=== PATIENT | male | born 1965 | race Caucasian/White ===

== ENCOUNTER 2022-08-09 11:32 | Outpatient (CLI) | payer OTHER, SELFPAY ==
[2022-08-09 17:10] LABS: Chloride* 102 mmol/L (96-114); Potassium* 4.5 mmol/L (3.6-5.1); Sodium* 141 mmol/L (135-149)
[2022-08-09 17:13] LABS: Blood Urea Nitrogen* 22 mg/dL (7-30); Carbon Dioxide* 29 mmol/L (20-32); Cholesterol* 189 mg/dL (90-199); Estimated Glomerular Filt Rate 89 ml/min; Glucose* 95 mg/dL (60-115); Triglycerides* 361 mg/dL (40-149)
[2022-08-09 17:14] LABS: Calcium* 9.6 mg/dL (8.4-10.6); HDL Cholesterol* 37 mg/dL (>=40); LDL Cholesterol Calculated 80 mg/dL (<100)
[2022-08-09 17:46] LABS: PSA Screen* 0.54 ng/mL (0.10-4.00)
== END 2022-08-09 11:33 | disposition home or self-care (01) ==
PROVIDERS: PCP Family Medicine; Visit Provider Family Medicine
DX: Z00.00 Encounter for general adult medical examination without abnormal findings (principal); Z13.1 Encounter for screening for diabetes mellitus; Z12.5 Encounter for screening for malignant neoplasm of prostate; Z13.6 Encounter for screening for cardiovascular disorders
CPT/HCPCS: 80048; 80061; 84153

== ENCOUNTER 2023-01-09 21:36 | Emergency (ER) | payer OTHER, SELFPAY ==
[2023-01-09 21:47] VITALS: BP 172/81; PULSE 94; RESP 22; TEMP 36.1; O2SAT 91
--- NOTE | 2023-01-09 21:57 | CRLHL7_ITS ---
For Patients: As a result of the Century Cures Act, medical imaging exams and procedure reports are released immediately into your electronic medical record. You may view this report before your referring provider. If you have questions, please contact your health care provider. INDICATION: Cough. TECHNIQUE: Chest 1 view. COMPARISON: None. FINDINGS: The right costophrenic angle is excluded from the field of view. No focal consolidation, pleural effusion, or pneumothorax. Normal heart size and pulmonary vascularity. The bones are unremarkable. IMPRESSION: No acute cardiopulmonary findings. Dictated by Maite Jeffers MD @ 01/09/2023 10:27:58 PM (Electronically Signed)
--- NOTE | 2023-01-09 21:59 | ED_ITS ---
HPI - General Adult General Time Seen by Provider: 21:59 Date Seen: 01/09/23 Chief complaint: Shortness of Breath/Dyspnea Stated complaint: Short of Breath Congested Cough Time Seen by Provider: 01/09/23 21:38 Source: patient Mode of arrival: ambulatory Limitations: no limitations History of Present Illness HPI narrative: Patient is a 57 year white male who is hit with a history of asthma. He has had a cough for the last couple months it sounds like, he is on montelukast, and he has an albuterol inhaler. He has gotten better with steroids in the past. He tends to get a respiratory infection and asthma problem every winter. He has noticed this over the last week and it has gotten worse. He was on prednisone it sounds like about 3 weeks ago for a persistent cough he was not treated with antibiotics at that time. He reports a dry hacking cough he feels short of breath today was worse. His O2 sat on presentation is 91% he is audibly wheezing. He does not smoke Related Data Home Medications Medication Instructions Recorded Confirmed aspirin 81 mg capsule 81 mg PO QDAY 08/09/22 12/23/22 fexofenadine 180 mg tablet 180 mg PO .hs 12/23/22 12/23/22 (Ivanna Allergy) Previous Rx's Medication Instructions Recorded montelukast 10 mg tablet 10 mg PO QHS #30 tabs 08/09/22 prednisone 20 mg tablet 40 mg PO QDAY #10 tabs 12/23/22 azithromycin 500 mg tablet 500 mg PO DAILY 6 days #9 tabs 01/09/23 (Zithromax) prednisone 20 mg tablet 20 mg PO BID 5 days #10 tabs 01/09/23 Allergies Allergy/AdvReac Type Severity Reaction Status Date / Time No Known Drug Allergies Allergy Verified 08/09/22 10:58 Review of Systems Status of ROS: Reports: 6 or more systems reviewed and unremarkable except as noted in History and below PFSH PFS Surgical History S/P appendectomy ?Z90.49 - Acquired absence of other specified parts of digestive tract (ICD- 10) Social History Smoking Status: Never smoker Exam Narrative: Exam Narrative: Objective: Patient is alert orient x3, noncyanotic, O2 sats 91% on room air. He is alert orient x3 Talks in even unlabored sentences Neck is supple Chest inspiratory expiratory wheezes in all lung wright Heart rhythm regular no murmur Abdomen benign soft Extremities are no edema, good peripheral perfusion Skin periphery warm and dry Const: Vital Signs, click to edit/add: Vital Signs - 24 hr 01/09/23 21:47 01/09/23 23:24 01/09/23 23:24 Temperature 97.0 F L Pulse Rate [Left P ulse Oximeter] 94 97 97 Respiratory Rate 22 20 Blood Pressure [Ri t Upper Arm] 172/81 H Pulse Oximetry 91 93 Oxygen Delivery Me thod Room Air Course Vital Signs Vital signs: Initial Vital Signs Temperature 97.0 F L 01/09/23 21:47 Temperature Source Temporal Artery Scan 01/09/23 21:47 Pulse Rate 94 01/09/23 21:47 Pulse Rhythm Regular 01/09/23 21:47 Respiratory Rate 22 01/09/23 21:47 Blood Pressure 172/81 H 01/09/23 21:47 Blood Pressure Mean 111 01/09/23 21:47 Blood Pressure Position Semi-Fowlers 01/09/23 21:47 Pulse Oximetry 91 01/09/23 21:47 Oxygen Delivery Method Room Air 01/09/23 21:47 Vital Signs Temperature 97.0 F L 01/09/23 21:47 Pulse Rate 94 01/09/23 21:47 Respiratory Rate 22 01/09/23 21:47 Blood Pressure 172/81 H 01/09/23 21:47 Pulse Oximetry 91 01/09/23 21:47 Oxygen Delivery Method Room Air 01/09/23 21:47 Temperature 97.0 F L 01/09/23 21:47 Pulse Rate 97 01/09/23 23:24 Respiratory Rate 20 01/09/23 23:24 Blood Pressure 172/81 H 01/09/23 21:47 Pulse Oximetry 93 01/09/23 23:24 Oxygen Delivery Method Room Air 01/09/23 21:47 Medical Decision Making [facility] Narrative Medical decision making narrative: [age] year white male with history of asthma/reactive airway disease, with recurrent symptoms each winter. Patient has wheezing at this point in mild hypoxia. Will check for COVID/influenza/RSV, will check a chest x-ray, IV Solu- Medrol IV Zithromax DuoNeb. Disposition pending findings and clinical status. Addendum: The patient's chest x-ray looks unremarkable by my read, his nasal swab results are not back yet, he feels better after the DuoNeb. He has increased his O2 sat 94 95%. He is breathing much easier. I think would be medley to have him on Zithromax, steroids orally, he can continue the Ivanna and he was having some side effect with the Singulair causing some cognitive depressive symptoms and he should talk to his regular provider about that. He also may need a treatment plan for winter as he seems to get bothered by postnasal drainage and allergy and asthma flares. He will talk to his regular providers on Tuesday sooner to ER as needed. Lab Data Labs: Lab Results 01/09/23 Range/Units 22:22 WBC 17.57 H (4.50-11.00) K/uL RBC 5.16 (4.30-5.90) m/uL Hgb 15.0 (13.5-17.5) gm/dL Hct 44.9 (37.0-53.0) % MCV 87 (80-100) fL MCH 29 (26-34) pg MCHC 33 (32-36) gm/dL RDW Coeff of Sarah 12.3 (11.5-15.5) % Plt Count 254 (140-440) K/uL Neut % (Auto) 70.3 (42.0-72.0) % Lymph % (Auto) 16.5 L (20-44) % [place] % (Auto) 6.5 (0.0-11.0) % Eos % (Auto) 5.0 (0.0-7.0) % Baso % (Auto) 0.3 (0.0-3.0) % Neut # (Auto) 12.40 H (1.7-7.0) K/uL Lymph # (Auto) 2.90 (0.90-2.90) K/uL [place] # (Auto) 1.10 H (0.00-0.90) K/UL Eos # (Auto) 0.90 H (0.00-0.50) K/uL Baso # (Auto) 0.10 (0.00-0.30) K/uL Sodium 139 (135-149) mmol/L Potassium 4.1 (3.6-5.1) mmol/L Chloride 105 (96-114) mmol/L Carbon Dioxide 28 (20-32) mmol/L BUN 16 (7-30) mg/dL Creatinine 1.1 (0.5-1.5) mg/dL Estimated GFR 79 ml/min Glucose 99 (60-115) mg/dL Calcium 8.8 (8.4-10.6) mg/dL SARS-CoV-2 (PCR) Negative SARS-CoV-2 (Negative) Influenza Type A (PCR) Negative PCR FLU A (Negative) Influenza Type B (PCR) Negative PCR FLU B (Negative) RSV (PCR) Negative PCR RSV (Negative) Discharge Plan Discharge Clinical Impression: Reactive airway disease Patient Disposition: Home w/ Parent or Adult Condition: Improved Additional Instructions: Rest, fluids, continue inhalers, prednisone 20 mg b.i.d. x5 days, Zithromax 500 mg daily for 6 additional days, recheck with primary care in the next 48 hours, return to ED sooner problems concerns difficulty. Would recommend getting a home oximeter as well. Activity Level: Light activity Discharge Diet: Regular Prescriptions: New azithromycin [Zithromax] 500 mg tablet 500 mg PO DAILY 6 Days Qty: 9 0RF prednisone 20 mg tablet 20 mg PO BID 5 Days Qty: 10 0RF No Action fexofenadine [Ivanna Allergy] 180 mg tablet 180 mg PO .hs prednisone 20 mg tablet 40 mg PO QDAY Qty: 10 0RF aspirin 81 mg capsule 81 mg PO QDAY montelukast 10 mg tablet 10 mg PO QHS Qty: 30 11RF Follow Up/Referrals: Ramirez Hernandez MD [Primary Care Provider] - Stand Alone Forms: [employer] Info Instructions
[2023-01-09] MEDS: IPRAT-ALBUT 0.5-2.5 MG/3 ML NEB 1 NEB IH (22:24)
[2023-01-09] MEDS: 0.9 % SODIUM CHLORIDE 1000 ml 1,000 ML 6000 ML IV (22:24)
[2023-01-09] MEDS: METHYLPREDNISOLONE SOD SUCC 62.5 MG/ML (125) 125 MG IVP (22:25)
[2023-01-09] MEDS: AZITHROMYCIN 100 MG/ML inj 500 MG IVPB (22:25)
[2023-01-09 22:52] LABS: Basophils Percent Auto 0.3 % (0.0-3.0); Hematocrit 44.9 % (37.0-53.0); Immature Granulocytes Pct Auto 1.4 %; Lymphocytes Percent Auto 16.5 % (20-44); Mean Corpuscular HGB Conc 33 gm/dL (32-36); Mean Corpuscular Hemoglobin 29 pg (26-34); Mean Corpuscular Volume 87 fL (80-100); Monocytes Percent Auto 6.5 % (0.0-11.0); Neutrophils Percent Auto 70.3 % (42.0-72.0); Platelet Count* 254 K/uL (140-440); RDW Coefficient of Variation % 12.3 % (11.5-15.5); Red Blood Count 5.16 m/uL (4.30-5.90); White Blood Count* 17.57 K/uL (4.50-11.00)
[2023-01-09 22:54] LABS: Chloride* 105 mmol/L (96-114); Potassium* 4.1 mmol/L (3.6-5.1); Sodium* 139 mmol/L (135-149)
[2023-01-09 22:56] LABS: Creatinine* 1.1 mg/dL (0.5-1.5); Estimated Glomerular Filt Rate 79 ml/min
[2023-01-09 22:57] LABS: Blood Urea Nitrogen* 16 mg/dL (7-30); Calcium* 8.8 mg/dL (8.4-10.6); Carbon Dioxide* 28 mmol/L (20-32); Glucose* 99 mg/dL (60-115); Slide Review Reflex No
[2023-01-09 23:18] LABS: PCR FLU A Negative PCR FLU A (Negative); PCR FLU B Negative PCR FLU B (Negative); PCR RSV Negative PCR RSV (Negative)
[2023-01-09 23:24] VITALS: PULSE 97; RESP 20; O2SAT 93
[2023-01-09 23:28] LABS: SARS PCR* Negative SARS-CoV-2 (Negative)
== END 2023-01-09 23:37 | disposition home or self-care (01) ==
LOC: ED 22:18
PROVIDERS: Emergency Provider Family Medicine; PCP Family Medicine
DX: J45.909 Unspecified asthma, uncomplicated (principal)
CPT/HCPCS: 36415; 71045; 80048; 85025; 87502; 87634; 87635; 94640; 94761; 96374; 96375; 99284; J0456; J2930; J7030

== ENCOUNTER 2024-02-27 10:29 | Emergency (ER) | payer OTHER, SELFPAY ==
[2024-02-27 10:32] VITALS: BP 137/74; PULSE 74; RESP 16; TEMP 36.8; O2SAT 95; BMI 30.1
--- NOTE | 2024-02-27 11:02 | ED.GENADULT ---
HPI - General Adult General Date Seen: 02/27/24 Chief complaint: Eye Problems Stated complaint: sore eyes Time Seen by Provider: 02/27/24 10:41 Source: patient Mode of arrival: ambulatory Limitations: no limitations History of Present Illness HPI narrative: Patient presents with irritation and ?soreness of both of his eyes. It started on the left eye on Tuesday and as of last night developed in the right eye. He has noted redness, irritation, and yellowish green discharge. He says his vision seems maybe mildly blurry but not dramatically affected. He does have seasonal allergies, takes daily Ivanna, but has not had problems like this with his allergies. Notes that his eyes are not significantly itchy. He is a [place], he is around a lot of dust in particulate debris but does not have any heart history of foreign body per se. He does not wear contact lenses. No welding. Related Data Home Medications Medication Instructions Recorded Confirmed aspirin 81 mg capsule 81 mg PO QDAY 08/09/22 02/27/24 fexofenadine 180 mg tablet 180 mg PO .hs 12/23/22 02/27/24 (Ivanna Allergy) Previous Rx's Medication Instructions Recorded albuterol sulfate 90 mcg/actuation 2 puff inhalation Q4-6H PRN 08/08/23 aerosol inhaler shortness of breath or wheezing #8.5 grams fluticasone 500 mcg-salmeterol 50 1 inh inhalation BID #60 ea 08/08/23 mcg/dose blistr powdr for inhalation (Wixela Inhub) montelukast 10 mg tablet 10 mg PO QHS #90 tabs 08/08/23 Allergies Allergy/AdvReac Type Severity Reaction Status Date / Time No Known Drug Allergies Allergy Verified 02/27/24 10:38 [facility] Surgical History S/P appendectomy ?Z90.49 - Acquired absence of other specified parts of digestive tract (ICD-10) Social History Smoking Status: Never smoker Exam Narrative: Exam Narrative: Vital signs reviewed In general, alert, well-appearing male. Eyes: He has conjunctival injection bilaterally, left greater than right. He has a little bit of injection of the lids as well, mild edema. Pupils are equal and reactive. No obvious foreign body. Purulent discharge is noted. Extraocular movements are full, no ophthalmoplegia. No significant erythema around the eyes. ENT: TMs are normal, nares clear, throat normal. Skin: Warm dry well perfused, no rash or lesion. Const: Vital Signs, click to edit/add: Vital Signs - 24 hr 02/27/24 10:32 Temperature 98.3 F Pulse Rate [Pulse Oximeter] 74 Respiratory Rate 16 Blood Pressure [Ri ght Upper Arm] 137/74 Pulse Oximetry 95 Oxygen Delivery Me thod Room Air Course Course ED Course: Overall exam is suggestive of bacterial conjunctivitis at this time with purulent discharge and progressive symptoms over the past couple of days. He does not give a history form body and I do not see anything on exam. Recommended antibiotic eyedrops, if not improving over the next day or 2 should be seen by the at Eye Clinic, return at any time for worsening symptoms such as significant vision changes, photophobia, severe pain. Vital Signs Vital signs: Initial Vital Signs Temperature 98.3 F 02/27/24 10:32 Temperature Source Temporal Artery Scan 02/27/24 10:32 Pulse Rate 74 02/27/24 10:32 Respiratory Rate 16 02/27/24 10:32 Blood Pressure 137/74 02/27/24 10:32 Blood Pressure Mean 95 02/27/24 10:32 Blood Pressure Position Sitting 02/27/24 10:32 Pulse Oximetry 95 02/27/24 10:32 Oxygen Delivery Method Room Air 02/27/24 10:32 Vital Signs Temperature 98.3 F 02/27/24 10:32 Pulse Rate 74 02/27/24 10:32 Respiratory Rate 16 02/27/24 10:32 Blood Pressure 137/74 02/27/24 10:32 Pulse Oximetry 95 02/27/24 10:32 Oxygen Delivery Method Room Air 02/27/24 10:32 Temperature 98.3 F 02/27/24 10:32 Pulse Rate 74 02/27/24 10:32 Respiratory Rate 16 02/27/24 10:32 Blood Pressure 137/74 02/27/24 10:32 Pulse Oximetry 95 02/27/24 10:32 Oxygen Delivery Method Room Air 02/27/24 10:32 Discharge Plan Discharge Clinical Impression: Bacterial conjunctivitis Patient Disposition: Home, Self-Care Condition: Stable Instructions: Conjunctivitis (ED) Additional Instructions: Antibiotic drops as prescribed. If you have worsening pain, changes in your vision, significant light sensitivity, etcetera, return at any time or be seen at an eye clinic. If no improvement over the next 24-48 hours, recheck with eye doctor. Prescriptions: No Action fexofenadine [Ivanna Allergy] 180 mg tablet 180 mg PO .hs aspirin 81 mg capsule 81 mg PO QDAY albuterol sulfate 90 mcg/actuation HFA aerosol inhaler 2 puff inhalation Q4-6H PRN (Reason: shortness of breath or wheezing) Qty: 8.5 8RF fluticasone propion-salmeterol [Wixela Inhub] 500-50 mcg/dose blister with device 1 inh inhalation BID Qty: 60 11RF montelukast 10 mg tablet 10 mg PO QHS Qty: 90 3RF Follow Up/Referrals: Ramirez Hernandez MD [Primary Care Provider] - Stand Alone Forms: [employer] Info Instructions
== END 2024-02-27 11:10 | disposition home or self-care (01) ==
PROVIDERS: Emergency Provider Emergency Medicine; PCP Family Medicine
DX: H10.33 Unspecified acute conjunctivitis, bilateral (principal)
CPT/HCPCS: 99283

== ENCOUNTER 2024-08-21 11:30 | Outpatient (CLI) | payer OTHER, SELFPAY | END 2024-08-21 11:31 | disposition home or self-care (01) | PROVIDERS: PCP Family Medicine; Visit Provider Family Medicine | DX: Z13.1 Encounter for screening for diabetes mellitus (principal); Z12.5 Encounter for screening for malignant neoplasm of prostate | CPT/HCPCS: 80048; G0103 ==

== ENCOUNTER 2024-09-29 11:08 | Emergency (ER) | payer OTHER, SELFPAY ==
[2024-09-29] VITALS (12 sets, daily range): BP systolic 147; BP diastolic 88; PULSE 75–93; RESP 20; TEMP 36.7; O2SAT 91–97
--- NOTE | 2024-09-29 11:35 | CRLHL7_ITS ---
For Patients: As a result of the Century Cures Act, medical imaging exams and procedure reports are released immediately into your electronic medical record. You may view this report before your referring provider. If you have questions, please contact your health care provider. INDICATION: Cough shortness of breath TECHNIQUE: Two view chest. FINDINGS: The lungs are clear. The heart, mediastinum and pulmonary vessels are of normal size. There is no evidence of pleural disease. IMPRESSION: Negative chest. Dictated by Pati Barry MD @ 09/29/2024 1:29:21 PM (Electronically Signed)
[2024-09-29] MEDS: ALBUTEROL SULFATE 2.5 MG/3 ML VIAL.NEB NEB (11:42)
--- NOTE | 2024-09-29 12:04 | ED.SOB ---
HPI - SOB/Dyspnea General Date Seen: 09/29/24 Chief Complaint: Shortness of Breath/Dyspnea Stated Complaint: shortness of breath,congestion Time Seen by Provider: 09/29/24 11:23 Source: patient Mode of arrival: ambulatory Limitations: no limitations History of Present Illness HPI Narrative: Patient is a 59-year-old male presenting to the emergency department for shortness of breath. States symptoms have been going on for the past 2 weeks. Describes shortness of breath is relatively mild and does feels he can not always take a full deep breath. Does also note some very mild substernal pressure that is been going on. States he gets symptoms like this every year for the past 4 years about this time. States this feels just like his previous episodes. Was told he has some formal seasonal asthma. Takes inhalers at home which she states has been helping somewhat but not been fully getting rid of the symptoms. Does not use a spacer for his albuterol inhaler. Denies fevers, chills, weakness, numbness. States he has a very mild left frontal headache. States it is tolerable. Denies any sinus pain. Has been having a cough and coughing up green mucus along with some green nasal drainage. No other concerns noted. Denies any history of smoking. No history of blood clots. No recent travel. Related Data Home Medications ?Medication ?Instructions ?Recorded ?Confirmed fexofenadine 180 mg tablet 180 mg PO .hs 12/23/22 09/29/24 (Ivanna Allergy) Previous Rx's ?Medication ?Instructions ?Recorded albuterol sulfate 90 mcg/actuation 2 puff inhalation Q4-6H PRN 08/21/24 aerosol inhaler shortness of breath or wheezing #8.5 grams fluticasone 500 mcg-salmeterol 50 1 inh inhalation BID #60 ea 08/21/24 mcg/dose blistr powdr for inhalation (Wixela Inhub) montelukast 10 mg tablet 10 mg PO QHS #90 tabs 08/21/24 azithromycin 250 mg tablet See Rx Instructions PO .COMPLEX #6 09/29/24 (Zithromax) tabs prednisone 20 mg tablet 40 mg (2 x 20 mg) PO DAILY #8 tabs 09/29/24 Allergies Allergy/AdvReac Type Severity Reaction Status Date / Time No Known Drug Allergies Allergy Verified 09/29/24 11:22 Review of Systems Status of ROS: Reports: 10 or more systems reviewed and unremarkable except as noted in History and below PFSH [facility] Surgical History S/P appendectomy ?Z90.49 - Acquired absence of other specified parts of digestive tract (ICD-10) Social History Smoking Status: Never smoker Do you use any of these nicotine containing products: None How often do you have a drink containing alcohol: never How often do you have six or more drinks on one occasion: Never AUDIT-C Alcohol total score: 0 Non-prescribed substance use: denies use service: No Exam Narrative: Exam Narrative: Const: Well-nourished, Well-developed, in mild distress Eyes: PERRL, no conjunctival injection, and symmetrical lids HENT: Atraumatic external nose and ears. Moist mucous membranes. Neck: Symmetric, trachea midline, No thyromegaly. CVS: RRR, No murmurs or gallops. Peripheral pulses 2+ and equal in all extremities RESP: Unlabored respiratory effort. Clear to auscultation bilaterally. GI: Nontender/Nondistended, No rebound or guarding. MSK:Extremities w/o deformity, Normal Active ROM Skin: Warm, Dry. No rashes or lesions. Neuro: Normal Muscle tone, No focal neurological deficits. Psych: Awake, Alert, & Oriented x3. Appropriate mood and affect. Const: Vital Signs, click to edit/add: Vital Signs - 24 hr 09/29/24 11:15 09/29/24 11:28 09/29/24 11:30 Temperature 98.0 F Pulse Rate 83 80 Pulse Rate [Pulse Oximeter] 82 Respiratory Rate 20 Blood Pressure [Ri ght Upper Arm] 147/88 H Pulse Oximetry 94 93 92 Oxygen Delivery Me thod Room Air 09/29/24 11:45 09/29/24 12:00 09/29/24 12:15 Temperature Pulse Rate 93 91 83 Pulse Rate [Pulse Oximeter] Respiratory Rate Blood Pressure [Ri ght Upper Arm] Pulse Oximetry 97 97 Oxygen Delivery Me thod 09/29/24 12:30 09/29/24 12:45 Temperature Pulse Rate 79 79 Pulse Rate [Pulse Oximeter] Respiratory Rate Blood Pressure [Ri ght Upper Arm] Pulse Oximetry 95 91 Oxygen Delivery Me thod Course Vital Signs Vital signs: Initial Vital Signs Temperature 98.0 F 09/29/24 11:15 Temperature Source Temporal Artery Scan 09/29/24 11:15 Pulse Rate 82 09/29/24 11:15 Respiratory Rate 20 09/29/24 11:15 Blood Pressure 147/88 H 09/29/24 11:15 Blood Pressure Mean 107 H 09/29/24 11:15 Blood Pressure Position Sitting 09/29/24 11:15 Pulse Oximetry 94 09/29/24 11:15 Oxygen Delivery Method Room Air 09/29/24 11:15 Vital Signs Temperature 98.0 F 09/29/24 11:15 Pulse Rate 82 09/29/24 11:15 Respiratory Rate 20 09/29/24 11:15 Blood Pressure 147/88 H 09/29/24 11:15 Pulse Oximetry 94 09/29/24 11:15 Oxygen Delivery Method Room Air 09/29/24 11:15 Temperature 98.0 F 09/29/24 11:15 Pulse Rate 79 09/29/24 12:45 Respiratory Rate 20 09/29/24 11:15 Blood Pressure 147/88 H 09/29/24 11:15 Pulse Oximetry 91 09/29/24 12:45 Oxygen Delivery Method Room Air 09/29/24 11:15 Medications Administered Medications: Discontinued Medications Generic Name Dose Route Start Last Admin Trade Name Freq PRN Reason Stop Dose Admin Albuterol 2.5 mg 09/29/24 11:34 09/29/24 11:42 Albuterol Sulfate 2.5 Mg/3 Ml Vial.Neb NEB 09/29/24 11:35 2.5 mg ONCE ONE Administration MDM - SOB/Dyspnea MDM Narrative Medical decision making narrative: Patient is a 59-year-old male presenting for shortness of breath. The differential diagnosis of shortness of breath is broad and includes common etiologies such as COPD, asthma, pneumonia, viral syndrome, etc. More serious etiologies considered include PE, CHF, coronary artery disease, pneumothorax, aortic dissection, aortic aneurysm. Will do chest x-ray to look for signs of pneumonia or pneumothorax. Lung sound clear but I will give him an albuterol treatment as he describes this as similar to his previous symptoms. Will do a an EKG and troponin to make sure there is no associated ACS as he is having chest pain. Will hold off on doing a D-dimer until he gets the albuterol treatment as he has had these exact symptoms before and has no history of blood clots. Did have improvement in symptoms with the albuterol. Symptoms not fully resolved but after long conversation with the patient we are in agreement not to check for blood clots as these symptoms are persistent with all his previous years of symptoms. Lab work returned showing no concerning abnormality other than elevated white count of 13.59. He has a slightly elevated potassium but is not of concern. Viral swabs are negative. EKG and troponin shows no concerning findings. I do not believe is necessary to repeat troponin as symptoms have been going on for a couple weeks. Chest x-ray reviewed by myself and the radiologist shows no concerning abnormalities. Patient states oral prednisone does not seem to ever work for him but he states every time he gets a shot of steroids seems to help more. Due to that I will do some IV Solu-Medrol. Since he does have elevated white count I will treat him with a Z-Raciel for possible underlying pneumonia not showing up on x-ray. He is agreeable to this plan Lab Data Labs: Lab Results 09/29/24 09/29/24 09/29/24 Range/Units 11:20 11:34 11:53 WBC 13.59 H (4.50-11.00) K/uL RBC 5.43 (4.30-5.90) m/uL Hgb 15.5 (13.5-17.5) gm/dL Hct 48.1 (37.0-53.0) % MCV 89 (80-100) fL MCH 29 (26-34) pg MCHC 32 (32-36) gm/dL RDW Coeff of Sarah 11.9 (11.5-15.5) % Plt Count 333 (140-440) K/uL Neut % (Auto) 77.0 H (42.0-72.0) % Lymph % (Auto) 15.4 L (20-44) % [place] % (Auto) 6.5 (0.0-11.0) % Eos % (Auto) 0.5 (0.0-7.0) % Baso % (Auto) 0.4 (0.0-3.0) % Neut # (Auto) 10.50 H (1.7-7.0) K/uL Lymph # (Auto) 2.10 (0.90-2.90) K/uL [place] # (Auto) 0.90 (0.00-0.90) K/UL Eos # (Auto) 0.10 (0.00-0.50) K/uL Baso # (Auto) 0.10 (0.00-0.30) K/uL Abs Immat Gran (auto) 0.00 (0.00-0.30) K/uL Imm/Tot Granulo (auto) 0.2 % Sodium 139 (135-149) mmol/L Potassium 5.3 H (3.6-5.1) mmol/L Chloride 103 (96-114) mmol/L Carbon Dioxide 29 (20-32) mmol/L Anion Gap 7 (7-15) mEq/L BUN 17 (7-30) mg/dL Creatinine 1.0 (0.5-1.5) mg/dL Estimated Creat Clear 80.52 Estimated GFR 87 ml/min Glucose 101 (60-115) mg/dL Calcium 9.8 (8.4-10.6) mg/dL SARS-CoV-2 (PCR) Negative SARS-CoV-2 (Negative) Influenza Type A (PCR) Negative PCR FLU A (Negative) Influenza Type B (PCR) Negative PCR FLU B (Negative) RSV (PCR) Negative PCR RSV (Negative) POC Troponin I 0.00 L (0.01-0.04) ng/ml Imaging Data Chest x-ray: Attestation: I have reviewed the pertinent imaging results. Radiologist's impression: Negative chest. Dictated by Pati Barry MD @ 09/29/2024 1:29:21 PM ECG Data Attestation: I personally reviewed and interpreted this ECG as follows: Prior ECG tracings: not available for review Interpretation: Normal sinus rhythm with a rate of 78 beats per minute, normal intervals, normal axis, no ST or T-wave abnormalities. Discharge Plan Discharge Clinical Impression: Bronchitis Patient Disposition: Home, Self-Care Condition: Improved Instructions: Acute Bronchitis (ED) Additional Instructions: Follow-up with your primary care provider if symptoms persist. Start taking steroids tomorrow for the next 4 days. Start your antibiotics today.. Return for new or worsening symptoms Prescriptions: New azithromycin [Zithromax] 250 mg tablet See Rx Instructions .ROUTE .COMPLEX Qty: 6 0RF Rx Instructions: For 250 mg dose pack: take 500 mg today (day 1), then 250 mg for 4 days (days 2-5) prednisone 20 mg tablet 40 mg PO DAILY Qty: 8 0RF No Action fexofenadine [Ivanna Allergy] 180 mg tablet 180 mg PO .hs albuterol sulfate 90 mcg/actuation HFA aerosol inhaler 2 puff inhalation Q4-6H PRN (Reason: shortness of breath or wheezing) Qty: 8.5 8RF fluticasone propion-salmeterol [Wixela Inhub] 500-50 mcg/dose blister with device 1 inh inhalation BID Qty: 60 11RF montelukast 10 mg tablet 10 mg PO QHS Qty: 90 3RF Follow Up/Referrals: Ramirez Hernandez MD [Primary Care Provider] - Stand Alone Forms: [employer] Info Instructions
[2024-09-29 12:27] LABS: Basophils Percent Auto 0.4 % (0.0-3.0); Eosinophils Percent Auto 0.5 % (0.0-7.0); Hematocrit 48.1 % (37.0-53.0); Hemoglobin* 15.5 gm/dL (13.5-17.5); Immature Granulocytes Pct Auto 0.2 %; Lymphocytes Percent Auto 15.4 % (20-44); Mean Corpuscular HGB Conc 32 gm/dL (32-36); Mean Corpuscular Hemoglobin 29 pg (26-34); Mean Corpuscular Volume 89 fL (80-100); Monocytes Percent Auto 6.5 % (0.0-11.0); Platelet Count* 333 K/uL (140-440); RDW Coefficient of Variation % 11.9 % (11.5-15.5); Red Blood Count 5.43 m/uL (4.30-5.90); Slide Review Reflex No; White Blood Count* 13.59 K/uL (4.50-11.00)
[2024-09-29 12:30] LABS: PCR FLU A Negative PCR FLU A (Negative); PCR FLU B Negative PCR FLU B (Negative); PCR RSV Negative PCR RSV (Negative); SARS PCR* Negative SARS-CoV-2 (Negative)
[2024-09-29 12:41] LABS: Chloride* 103 mmol/L (96-114)
[2024-09-29 12:42] LABS: Potassium* 5.3 mmol/L (3.6-5.1); Sodium* 139 mmol/L (135-149)
[2024-09-29 12:44] LABS: Est. Creatinine Clearance* 80.52; Estimated Glomerular Filt Rate 87 ml/min
[2024-09-29 12:45] LABS: Anion Gap 7 mEq/L (7-15); Blood Urea Nitrogen* 17 mg/dL (7-30); Calcium* 9.8 mg/dL (8.4-10.6); Carbon Dioxide* 29 mmol/L (20-32); Glucose* 101 mg/dL (60-115)
[2024-09-29] MEDS: METHYLPREDNISOLONE SOD SUCC 40 MG/ML IM (14:05)
== END 2024-09-29 14:17 | disposition home or self-care (01) ==
PROVIDERS: Emergency Provider Student in an Organized Health Care Education/Training Program; PCP Family Medicine
DX: J40 Bronchitis, not specified as acute or chronic (principal)
CPT/HCPCS: 36415; 71046; 80048; 84484; 85025; 87631; 93005; 94640; 99283; 99284; J2919

== ENCOUNTER 2024-10-25 21:08 | Emergency (ER) | payer OTHER, SELFPAY ==
--- OUTSIDE RECORDS SUMMARY | 2024-10-25 21:10 | XMS_ITS | Clinical Summary ---
Author Organization [facility] Address [place], [place] [address] Care Team Providers Care Mule Tender Name Role Phone Pcp, No Primary Care Provider Unavailabl e Allergies No known active allergies Medications albuterol HFA (PRO-AIR; VENTOLIN; PROVENTIL) 90 mcg/actuation inhalerIndicatio ns:Cough Inhale 1-2 Puffs by mouth every 4 hours if needed. 1 Each 10/02/2020 Active Immunizations Name Administration Dates Next Due MMR 04/29/1998 Td (Age >=7 Years) 04/29/1998 Tdap 07/02/2014 Family History Medical History Relation Name Comments Diabetes Mother Multiple myeloma Mother Relation Name Status Comments Mother Social History Tobacco Use Types Packs/Day Years Used Date Smoking Tobacco: Never Smokeless Tobacco: Never Tobacco Cessation:Counseling Given: Yes Alcohol Use Standard Drinks/Week Comments Yes 0 (1 standard drink = 0.6 oz pur e alcohol) social PHQ-2 Answer Date Recorded PHQ-2 TOTAL SCORE 2 10/07/2020 Social Connections Answer Date Recorded Frequency of Communication with Friends and Fami ly Not on file 10/10/2021 Financial Resource Strain Answer Date R ecorded Difficulty of Paying Living Expenses Not on file 10/10/2021 Difficulty of Paying Living Expenses Not on file 10/10/2021 Sex and Gender Information Value Date Recorded Sex Assigned at Not on file Legal Sex 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 Gender Identity Not on file Sexual Orientation Not on file Obstetrics History Last Filed Vital Signs Vital Sign Reading Time Taken Comments Blood Pressure 138/72 10/07/2020 10:37 AM GRAPE PRUNER Pulse 72 10/07/2020 10:37 AM GRAPE PRUNER Temperature 36.3 C (97.4 F) 09/27/2020 11:17 AM GRAPE PRUNER Respiratory Rate 18 09/27/2020 1:26 PM GRAPE PRUNER Oxygen Saturation 96% 10/07/2020 11:03 AM GRAPE PRUNER Inhaled Oxygen Concentration - - Weight 92 kg (202 lb 14.4 oz) 10/07/2020 10:37 A M GRAPE PRUNER Height 175.3 cm (5' 9) 09/27/2020 11:17 AM GRAPE PRUNER Body Mass Index 29.96 09/27/2020 11:17 AM GRAPE PRUNER Plan of Treatment Health Maintenance Due Date Last Done Comments HIV for age 15-65 1981 BMI (ht and wt on same day) for age 18+ 1984 Hepatitis C screening for ag e 18-79 1984 Colonoscopy through age 75 2011 Lipids for age 45-75 2011 Zoster (shingles) series for age 50+ (1 of 2) 2016 Depression screening for age 12+ 10/07/2021 10/07/2020 COVID-19 vaccine series (2023- season) 2024 Influenza for age 50-64 06/10/2024 Tetanus booster 07/02/2024 07/02/2014, 04/29/1998 Tdap Completed 07/02/2014 Pneumococcal series for age 6-49 Aged Out No longer eligible b ased on patient's age to complete this topic Insurance MED[employer] ELECT Care Teams Mule Tender Relationship Specialty Start Date End Date Pcp, No . PCP - General 09/27/20
--- OUTSIDE RECORDS SUMMARY | 2024-10-25 21:10 | XMS_ITS | Continuity of Care Document ---
Author Name [facility]IN User [facility] Address Unknown Organization Unknown Address Unknown Procedures FILTER APPLIED:Only known Procedures with Onset Date within the last 5 years Procedure Date Procedure Provider Additional Inform ation Status EMERGENCY DEPT VISIT LOW MDM (61685) Completed Encounters FILTER APPLIED:Only known Encounters with Admission Date within the last 5 years Encounter Location Admission Discharge Billing Code Seo Marketing Specialist Devyn uribe [facility]
--- NOTE | 2024-10-25 21:13 | CRLHL7_ITS ---
For Patients: As a result of the Cures Act, medical imaging exams and procedure reports are released immediately into your electronic medical record. You may view this report before your referring provider. If you have questions, please contact your health care provider. INDICATION: Cough. TECHNIQUE: Chest 2 views. COMPARISON: 09/29/2024. FINDINGS: Cardiovascular and mediastinum: Heart size and vasculature are normal in caliber and appearance. Lungs and pleural spaces: Faint patchy opacities in the left lower lobe. No pleural effusions or pneumothorax. Bones and soft tissues: No significant findings. IMPRESSION: Left lower lobe faint patchy opacities, which may represent pneumonia in the appropriate clinical context. Dictated by Mando Fu MD @ 10/25/2024 9:48:17 PM (Electronically Signed)
[2024-10-25 21:14] VITALS: BP 133/70; PULSE 130; RESP 20; TEMP 37.1; O2SAT 91; BMI 30.1
[2024-10-25 22:05] LABS: PCR FLU A POSITIVE PCR FLU A (Negative); PCR FLU B Negative PCR FLU B (Negative); PCR RSV Negative PCR RSV (Negative); SARS PCR* Negative SARS-CoV-2 (Negative)
--- NOTE | 2024-10-25 22:18 | ED.GENADULT ---
HPI - General Adult General Chief complaint: Cough Stated complaint: Difficulty breathing, fever, chest congestion Time Seen by Provider: 10/25/24 22:02 History of Present Illness HPI narrative: This 59-year-old male comes in with cough, generalized aches and pains, and nasal congestion that began yesterday. He does have a history of asthma symptoms and is currently taking several medicines to manage that. He arrives here with oximetry at 91% on room air but does have some tachycardia. He is not using accessory muscles for breathing. Related Data Home Medications ?Medication ?Instructions ?Recorded ?Confirmed fexofenadine 180 mg tablet 180 mg PO .hs 12/23/22 10/25/24 ([facility] All[facility]) Previous Rx's ?Medication ?Instructions ?Recorded albuterol sulfate 90 mcg/actuation 2 puff inhalation Q4-6H PRN 08/21/24 aerosol inhaler shortness of breath or wheezing #8.5 grams fluticasone 500 mcg-salmeterol 50 1 inh inhalation BID #60 ea 08/21/24 mcg/dose blistr powdr for inhalation (Wixela Inhub) montelukast 10 mg tablet 10 mg PO QHS #90 tabs 08/21/24 Allergies Allergy/AdvReac Type Severity Reaction Status Date / Time No Known Drug Allergies Allergy Verified 09/29/24 11:22 Review of Systems Status of ROS: Reports: 10 or more systems reviewed and unremarkable except as noted in History and below Narrative: Constitutional: No weight gain or loss. Eyes: No discharge. No vision changes. HENT: No congestion, no sore throat, no ear pain. Cardiovascular: No chest pain, no palpitations. Respiratory: No shortness of breath. Harsh cough. Gastrointestinal: No abdominal pain, no vomiting, no diarrhea. Genitourinary: No dysuria, no hematuria. Musculoskeletal: Normal range of motion. Skin: No rashes, no pruritis. Neurological: No dizziness, weakness, sensory change, speech change. Endo/Heme/Allergies: No bruising or bleeding. No polydipsia. Pysch: no suicidality, no anxiety, no insomnia. All other systems reviewed and are negative. PFSH PFSH Surgical History S/P appendectomy ?Z90.49 - Acquired absence of other specified parts of digestive tract (ICD-10) Social History Smoking Status: Never smoker Do you use any of these nicotine containing products: None How often do you have a drink containing alcohol: never How often do you have six or more drinks on one occasion: Never AUDIT-C Alcohol total score: 0 Non-prescribed substance use: denies use service: No Exam Narrative: Exam Narrative: Constitutional: Well-developed, well-nourished, no acute distress. HEENT: Normocephalic, atraumatic. Neck: Normal range of motion. Nontender. Supple. Heart: Regular. No murmurs. Tachycardia. Intact distal pulses. Lungs: Clear to auscultation. No chest discomfort. No wheezes, rhonchi, or rales. Abdomen: Normal bowel sounds. Nontender. No rebound tenderness. Genitalia: Deferred. Back: No midline tenderness. Normal range of motion. Extremities: Normal range of motion. No injury. Skin: Intact. No rash. Warm. No erythema or pallor. Neurologic: No altered sensation. No weakness. Alert and oriented. Psychiatric: No suicidality. No anxiety or depression. No insomnia. Nursing notes and vitals signs are reviewed. Const: Vital Signs, click to edit/add: Vital Signs - 24 hr 10/25/24 21:14 Temperature 98.7 F Pulse Rate [Pulse Oximeter] 130 H Respiratory Rate 20 Blood Pressure [Ri ght Upper Arm] 133/70 Pulse Oximetry 91 Oxygen Delivery Me thod Room Air Course Vital Signs Vital signs: Initial Vital Signs Temperature 98.7 F 10/25/24 21:14 Temperature Source Temporal Artery Scan 10/25/24 21:14 Pulse Rate 130 H 10/25/24 21:14 Respiratory Rate 20 10/25/24 21:14 Blood Pressure 133/70 10/25/24 21:14 Blood Pressure Mean 91 10/25/24 21:14 Blood Pressure Position Sitting 10/25/24 21:14 Pulse Oximetry 91 10/25/24 21:14 Oxygen Delivery Method Room Air 10/25/24 21:14 Vital Signs Temperature 98.7 F 10/25/24 21:14 Pulse Rate 130 H 10/25/24 21:14 Respiratory Rate 20 10/25/24 21:14 Blood Pressure 133/70 10/25/24 21:14 Pulse Oximetry 91 10/25/24 21:14 Oxygen Delivery Method Room Air 10/25/24 21:14 Temperature 98.7 F 10/25/24 21:14 Pulse Rate 130 H 10/25/24 21:14 Respiratory Rate 20 10/25/24 21:14 Blood Pressure 133/70 10/25/24 21:14 Pulse Oximetry 91 10/25/24 21:14 Oxygen Delivery Method Room Air 10/25/24 21:14 Medical Decision Making MDM Narrative Medical decision making narrative: This patient comes in with upper respiratory symptoms as described above. Nasal pharyngeal swab returns positive for influenza A. Chest x-ray shows no obvious sign of pneumonia. The patient is maintaining sufficient oximetry on room air. He does have normal breathing medicines typically prescribed for managing asthma like symptoms. On exam he does not have any inspiratory or expiratory wheezes. The patient did receive an oral dose of dexamethasone. I did provide prescriptions for Tamiflu and Tylenol 3. Lab Data Labs: Lab Results 10/25/24 Range/Units 21:20 SARS-CoV-2 (PCR) Negative SARS-CoV-2 (Negative) Influenza Type A (PCR) POSITIVE PCR FLU A A (Negative) Influenza Type B (PCR) Negative PCR FLU B (Negative) RSV (PCR) Negative PCR RSV (Negative) Discharge Plan Discharge Clinical Impression: Influenza A Patient Disposition: Home, Self-Care Condition: Stable Additional Instructions: Take medication as prescribed. Follow up with MD or return if worsening symptoms occur. Prescriptions: No Action fexofenadine [Ivanna Allergy] 180 mg tablet 180 mg PO .hs albuterol sulfate 90 mcg/actuation HFA aerosol inhaler 2 puff inhalation Q4-6H PRN (Reason: shortness of breath or wheezing) Qty: 8.5 8RF fluticasone propion-salmeterol [Wixela Inhub] 500-50 mcg/dose blister with device 1 inh inhalation BID Qty: 60 11RF montelukast 10 mg tablet 10 mg PO QHS Qty: 90 3RF Follow Up/Referrals: Ramirez Hernandez MD [Primary Care Provider] - Stand Alone Forms: CATAS[employer] Info Instructions
--- OUTSIDE RECORDS SUMMARY | 2024-10-25 22:27 | XMS_ITS | Clinical Summary ---
Author Organization [facility] Address [place], [place] [address] Care Team Providers Care Energy Audit Advisor Name Role Phone Pcp, No Primary Care [...] on file Legal Sex Male 7:46 AM LUGGAGE REPAIRER Gender Identity Not on file Sexual Orientation Not on file Obstetrics History Last Filed Vital Signs Vital Sign Reading Time Taken Comments Blood Pressure 138/72 10/07/2020 10:37 AM LUGGAGE REPAIRER Pulse 72 10/07/2020 10:37 AM LUGGAGE REPAIRER Temperature 36.3 C (97.4 F) 09/27/2020 11:17 AM LUGGAGE REPAIRER Respiratory Rate 18 09/27/2020 1:26 PM LUGGAGE REPAIRER Oxygen Saturation 96% 10/07/2020 11:03 AM LUGGAGE REPAIRER Inhaled Oxygen Concentration - - Weight 92 kg (202 lb 14.4 oz) 10/07/2020 10:37 A M LUGGAGE REPAIRER Height 175.3 cm (5' 9) 09/27/2020 11:17 AM LUGGAGE REPAIRER Body Mass Index 29.96 09/27/2020 11:17 AM LUGGAGE REPAIRER Plan of Treatment Health Maintenance Due Date [...] this topic Insurance MEDICA ELECT Care Teams Energy Audit Advisor Relationship Specialty Start Date End Date Pcp, No . PCP - General 09/27/20
--- OUTSIDE RECORDS SUMMARY | 2024-10-25 22:27 | XMS_ITS | Continuity of Care Document ---
Author Name [facility]IN User [facility] Address Unknown Organization Unknown Address Unknown Procedures FILTER APPLIED:Only known Procedures with Onset Date within the last 5 years Procedure Date Procedure Provider Additional Inform ation Status EMERGENCY DEPT VISIT LOW MDM (52996) Completed Encounters FILTER APPLIED:Only known Encounters with Admission Date within the last 5 years Encounter Location Admission Discharge Billing Code Tire Fabric Inspector Devyn uribe [facility]
== END 2024-10-25 22:43 | disposition home or self-care (01) ==
PROVIDERS: Emergency Provider Emergency Medicine Emergency Medical Services; PCP Family Medicine
DX: J10.1 Influenza due to other identified influenza virus with other respiratory manifestations (principal)
CPT/HCPCS: 71046; 87631; 99284

== ENCOUNTER 2025-07-02 10:34 | Emergency (ER) | payer OTHER, SELFPAY ==
--- OUTSIDE RECORDS SUMMARY | 2025-07-02 10:36 | XMS_ITS | Clinical Summary ---
Author Organization [facility] Address [address] [place] [id number] Care Team Providers Care Director Oracle Name Role Phone Pcp, No Primary Care Provider Unavailabl e Allergies No known active allergies Medications albuterol HFA (PRO-AIR; VENTOLIN; PROVENTIL) 90 mcg/actuation inhalerIndicatio ns:Cough Inhale 1-2 Puffs by mouth every 4 hours if needed. 1 Each 10/02/2020 Active Immunizations Immunization Administration Dates Next Due MMR 04/29/1998 Td [...] on file Legal Sex Male 7:46 AM STUNT MAN Gender Identity Not on file Sexual Orientation Not on file Obstetrics History Last Filed Vital Signs Vital Sign Reading Time Taken Comments Blood Pressure 138/72 10/07/2020 10:37 AM STUNT MAN Pulse 72 10/07/2020 10:37 AM STUNT MAN Temperature 36.3 C (97.4 F) 09/27/2020 11:17 AM STUNT MAN Respiratory Rate 18 09/27/2020 1:26 PM STUNT MAN Oxygen Saturation 96% 10/07/2020 11:03 AM STUNT MAN Inhaled Oxygen Concentration - - Weight 92 kg (202 lb 14.4 oz) 10/07/2020 10:37 A M STUNT MAN Height 175.3 cm (5' 9) 09/27/2020 11:17 AM STUNT MAN Body Mass Index 29.96 09/27/2020 11:17 AM STUNT MAN Plan of Treatment Health Maintenance Due Date Last Done Comments HIV for age 15-65 1981 BMI (ht and wt on same day) for age 18+ 1984 Hepatitis C screening for age 18-79 1984 Hepatitis B series for 19+ ( 1 of 3 - 19+ 3-dose series) 1985 Colonoscopy through age 75 2011 Lipids for age 45-75 2011 Pneumococcal series for age 50+ (1 of 1 - PCV) 2016 Zoster (shingles) series for age 50+ (1 of 2) 2016 Depression screening for age 12+ 10/07/2021 10/07/20 20 Tetanus booster 07/02/2024 07/02/2014, 04/29/1998 COVID-19 vaccine series ( - 2023- season) 2025 Influenza Vaccine (#1) 2025 RSV vaccine for adults or pr egnancy (1 - 1-dose 75+ series) 2041 Insurance MEDICA ELECT Care Teams Director Oracle Relationship Specialty Start Date End Date Pcp, No . PCP - General 09/27/20
[2025-07-02 10:49] VITALS: BP 136/81; PULSE 90; RESP 16; TEMP 36.5; O2SAT 95; BMI 30.6
--- NOTE | 2025-07-02 13:35 | ED.GENADULT ---
HPI - General Adult General Date Seen: 07/02/25 Chief complaint: Insect Bite Stated complaint: insect bites on ankles Time Seen by Provider: 07/02/25 13:21 Source: patient Mode of arrival: ambulatory Limitations: no limitations History of Present Illness HPI narrative: Patient is a 59-year-old male presenting to the emergency department for bilateral ankle swelling. He states a few days ago he got bit by some bugs around the ankle and started noticing swelling around the bug bites. Denies states her ankles are swollen bilaterally. There is some pain around nares swelling. Denies any calf pain. No history of blood clots. No family history of clotting disorders. Denies fevers, chills, chest pain, shortness of breath lightheadedness, dizziness. No other concerns noted at this time. Not aware of any allergies. Related Data Home Medications ?Medication ?Instructions ?Recorded ?Confirmed loratadine 10 mg tablet (Claritin) 10 mg PO QDAY 02/01/25 07/02/25 Previous Rx's ?Medication ?Instructions ?Recorded fluticasone 500 mcg-salmeterol 50 1 inh inhalation BID #60 ea 08/21/24 mcg/dose blistr powdr for inhalation (Wixela Inhub) montelukast 10 mg tablet 10 mg PO QHS #90 tabs 08/21/24 albuterol sulfate 90 mcg/actuation 2 puff inhalation Q4-6H PRN 02/01/25 aerosol inhaler shortness of breath or wheezing #8.5 grams Allergies Allergy/AdvReac Type Severity Reaction Status Date / Time No Known Drug Allergies Allergy Verified 02/01/25 10:30 Review of Systems Status of ROS: Reports: 10 or more systems reviewed and unremarkable except as noted in History and below [facility] Medical History Dyslipidemia ?E78.5 - Hyperlipidemia, unspecified (ICD-10) Moderate persistent asthma ?J45.40 - Moderate persistent asthma, uncomplicated (ICD-10) Seasonal allergies ?J30.2 - Other seasonal allergic rhinitis (ICD-10) Family history of diabetes mellitus ?Z83.3 - Family history of diabetes mellitus (ICD-10) Family history of multiple myeloma ?Z80.7 - Family history of other malignant neoplasms of lymphoid, hematopoietic and related tissues (ICD-10) Surgical History S/P appendectomy ?Z90.49 - Acquired absence of other specified parts of digestive tract (ICD-10) Social History Smoking Status: Never smoker Do you use any of these nicotine containing products: None How often do you have a drink containing alcohol: never How often do you have six or more drinks on one occasion: Never AUDIT-C Alcohol total score: 0 Non-prescribed substance use: denies use service: No Exam Narrative: Exam Narrative: Const: Well-nourished, Well-developed, in no distress Eyes: PERRL, no conjunctival injection, and symmetrical lids HENT: Atraumatic external nose and ears. Moist mucous membranes. CVS: RRR, No murmurs or gallops. Peripheral pulses 2+ and equal in all extremities RESP: Unlabored respiratory effort. Clear to auscultation bilaterally. MSK:Extremities w/o deformity, Normal Active ROM, mild swelling noted around the ankles bilaterally Skin: Warm, Dry. Mild erythema around both ankles worse on the left with some warmth noted on the left Neuro: Normal Muscle tone, No focal neurological deficits. Psych: Awake, Alert, & Oriented x3. Appropriate mood and affect. Const: Vital Signs, click to edit/add: Vital Signs - 24 hr 07/02/25 10:49 Temperature 97.7 F Pulse Rate [Pulse Oximeter] 90 Respiratory Rate 16 Blood Pressure [Ri ght Upper Arm] 136/81 Pulse Oximetry 95 Oxygen Delivery Me thod Room Air Course Vital Signs Vital signs: Initial Vital Signs Temperature 97.7 F 07/02/25 10:49 Temperature Source Temporal Artery Scan 07/02/25 10:49 Pulse Rate 90 07/02/25 10:49 Respiratory Rate 16 07/02/25 10:49 Blood Pressure 136/81 07/02/25 10:49 Blood Pressure Mean 99 07/02/25 10:49 Blood Pressure Position Sitting 07/02/25 10:49 Pulse Oximetry 95 07/02/25 10:49 Oxygen Delivery Method Room Air 07/02/25 10:49 Vital Signs Temperature 97.7 F 07/02/25 10:49 Pulse Rate 90 07/02/25 10:49 Respiratory Rate 16 07/02/25 10:49 Blood Pressure 136/81 07/02/25 10:49 Pulse Oximetry 95 07/02/25 10:49 Oxygen Delivery Method Room Air 07/02/25 10:49 Temperature 97.7 F 07/02/25 10:49 Pulse Rate 90 07/02/25 10:49 Respiratory Rate 16 07/02/25 10:49 Blood Pressure 136/81 07/02/25 10:49 Pulse Oximetry 95 07/02/25 10:49 Oxygen Delivery Method Room Air 07/02/25 10:49 Medical Decision Making MDM Narrative Medical decision making narrative: Patient is a 59-year-old male presenting for lower extremity swelling bilaterally around his ankles have trace blood lytes. Tarsi definitively if there is cellulitis or not the burs warmth noted on the left ankle. No history of clotting disorders or blood clots. My concern for bilateral DVTs are low. I do not believe ultrasounds are necessary. He overall is appearing well I do not believe further workup is necessary. This could all be just a localized reaction to the insect bites but will treat with Keflex for possible infection. Discharge Plan Discharge Clinical Impression: Insect bite Qualifiers: Encounter type: initial encounter Site of insect bite: ankle Laterality: unspecified laterality Qualified Code(s): S90.569A - Insect bite (nonvenomous), unspecified ankle, initial encounter Patient Disposition: Home, Self-Care Condition: Stable Additional Instructions: Your ankle swelling may be just from localized reaction to insect bites but since there is some warmth and possible signs of cellulitis I will start you on Keflex. He can pick it up at [facility]. Return to the emergency department for new or worsening symptoms. Prescriptions: No Action fluticasone propion-salmeterol [Wixela Inhub] 500-50 mcg/dose blister with device 1 inh inhalation BID Qty: 60 11RF montelukast 10 mg tablet 10 mg PO QHS Qty: 90 3RF loratadine [Claritin] 10 mg tablet 10 mg PO QDAY albuterol sulfate 90 mcg/actuation HFA aerosol inhaler 2 puff inhalation Q4-6H PRN (Reason: shortness of breath or wheezing) Qty: 8.5 8RF Follow Up/Referrals: Ramirez Hernandez MD [Primary Care Provider, Family Practice] Stand Alone Forms: MyHealth Info Instructions
== END 2025-07-02 13:53 | disposition home or self-care (01) ==
PROVIDERS: Emergency Provider Student in an Organized Health Care Education/Training Program; PCP Family Medicine
DX: R22.43 Localized swelling, mass and lump, lower limb, bilateral (principal); W57.XXXA Bitten or stung by nonvenomous insect and other nonvenomous arthropods, initial encounter
CPT/HCPCS: 99283

== ENCOUNTER 2025-09-06 11:05 | Outpatient (CLI) | payer OTHER, SELFPAY | END 2025-09-06 11:06 | disposition home or self-care (01) | PROVIDERS: PCP Family Medicine; Visit Provider Family Medicine | DX: E78.5 Hyperlipidemia, unspecified (principal); M25.579 Pain in unspecified ankle and joints of unspecified foot; Z13.1 Encounter for screening for diabetes mellitus | CPT/HCPCS: 80048; 80061; 86618 ==